=== PATIENT | male | born 1975 | race Two or more races ===

== ENCOUNTER 2017-04-14 12:14 | Day surgery (SDC) | payer OTHER ==
[~2017-04-14] VITALS: Ht 167.6 cm; Wt 105.5 kg
[~2017-04-14 12:14] MED LIST: ABILIFY30 MG PO; ADDERALL XR 1515 MG PO; ADVIL200 MG PO; COLACE100 MG PO; DEXPAK1.5 M2 PO; LAMICTAL200 MG PO; LEXAPRO20 MG PO; MEDROL DOSEPAK4 MG PO; PERCOCET 5/31 TABLET PO; REQUIP1 MG PO; TRAZODONE HCL100 MG PO; VALIUM5 MG PO
[2017-04-14 12:54] VITALS: BP 127/73
[2017-04-14 21:34] VITALS: BP 138/90
[2017-04-14 23:57] VITALS: BP 120/61
[2017-04-15 04:02] VITALS: BP 108/62
[2017-04-15] MEDS ORDERED: PERCOCET 5/31 TABLET PO (07:33)
[2017-04-15] MEDS ORDERED: CYCLOBENZAPRINE10 MG PO (07:33)
[2017-04-15 08:47] VITALS: BP 121/76
[2017-04-15 11:58] VITALS: BP 115/68
== END 2017-04-15 13:34 | disposition home or self-care (01) ==
LOC: SDC 12:14 → 2SOUTH 19:44 → 3EAST 19:44 → CANRESERV 19:48 → ENRESERV 19:48 → CANRESERV 19:49 → ENRESERV 19:50 → 3EAST 21:28
DX: M51.16 Intervertebral disc disorders with radiculopathy, lumbar region (principal); M96.840 Postprocedural hematoma of a musculoskeletal structure following a musculoskeletal system procedure; Y83.8 Other surgical procedures as the cause of abnormal reaction of the patient, or of later complication, without mention of misadventure at the time of the procedure; F31.9 Bipolar disorder, unspecified; R29.898 Other symptoms and signs involving the musculoskeletal system; K21.9 Gastro-esophageal reflux disease without esophagitis; Z87.891 Personal history of nicotine dependence
CPT/HCPCS: G0378; J0131; J0330; J0690; J1100; J1170; J2250; J2405; J2710; J2930; J3010; J3370; J3480; S0020